=== PATIENT | female | born 1990 | race Caucasian/White ===

== ENCOUNTER 2023-12-02 15:58 | Emergency (ER) | payer OTHER, SELFPAY ==
[2023-12-02 16:05] VITALS: BP 124/79; PULSE 70; TEMP 36.8; O2SAT 99; BMI 28.8
--- NOTE | 2023-12-02 16:20 | CT_ITS ---
The [address] [address] Patient Name: CHAMP BEAR MRN: [id number] date: 1990 Sex: F Assigned Patient Location: ER Current Patient Location: ER Accession/Order Number: [id number] Exam Date: 12/02/2023 17:45 Report Date: 12/02/2023 18:36 At the request of: BLOSSOM VELASQUEZ Procedure: CT abdomen pelvis w con EXAM: CT abdomen pelvis w con HISTORY: Upper abdominal pain, possible gallbladder issue COMPARISON: None. TECHNIQUE: Helical CT images from the lung bases through the symphysis pubis were obtained with contrast. Coronal and sagittal reformatted images were generated at a workstation for further assessment. FINDINGS: Lower chest: No consolidation. No pleural effusion or pneumothorax. Liver: No suspicious liver lesions. Portal veins appear patent. Gallbladder: No gallstones. No evidence of acute cholecystitis. Spleen: Normal size. Pancreas: No suspicious pancreatic lesions. The pancreatic duct is not dilated. Adrenal glands: No adrenal nodules. Kidneys: No hydronephrosis or obstructing renal stones. There is a punctate nonobstructing stone at the inferior left kidney. Bladder / Pelvic organs: The uterus is present. The ovaries are visualized. There is mild free pelvic fluid, which may be physiologic.. Bowel: No bowel wall thickening. The appendix is not visualized. There is no evidence for appendicitis. No bowel obstruction. Lymph nodes: No retroperitoneal, mesenteric, or pelvic lymphadenopathy. Peritoneum / Retroperitoneum: No free fluid or air within the abdomen. Vessels: No infrarenal aortic aneurysm. Bones and soft tissues: No suspicious lesion in the bones. There is a low transverse section scar. Fixation changes at L5-S1. CT/CT abdomen pelvis w con IMPRESSION: 1. No acute finding in the abdomen or pelvis. The gallbladder appears normal. 2. There is mild free pelvic fluid, which may be physiologic. Electronically authenticated by: RALF KNUTSON Date: 12/02/2023 18:36
--- NOTE | 2023-12-02 16:21 | ED.GENADUL1 ---
HPI HPI - General Adult General Chief complaint: Nausea/Vomiting/Diarrhea Stated complaint: Nausea/Vomiting, Abdominal Pain Time Seen by Provider: 12/02/23 16:13 Source: patient Mode of arrival: walk-in Limitations: no limitations History of Present Illness HPI narrative: 33-year-old female presents to the emergency department for abdominal pain. Its across her upper abdomen and she has had it intermittently for about a week. She has been having diarrhea as well, nonbloody. She has been nauseous and had vomited some yellow liquid. She had a delivery in September of this year, 2-1/2 months ago. She has never had any issues with her gallbladder. The pain is moderate and intermittent. Related Data Home Medications ?Medication ?Instructions ?Recorded ?Confirmed aspirin 81 mg chewable tablet 81 mg PO DAILY 12/02/23 12/02/23 (Aspirin Childrens) clonazepam 1 mg tablet 1 mg PO Q8H PRN anxiety 12/02/23 12/02/23 dextroamphetamine-amphetamine 30 30 mg PO DAILY 12/02/23 12/02/23 mg tablet fluoxetine 10 mg capsule 20 mg PO DAILY 12/02/23 12/02/23 fluticasone propionate 50 2 spray intranasal Q12H PRN nasal 12/02/23 12/02/23 mcg/actuation nasal congestion spray,suspension spironolactone 25 mg tablet 50 mg PO DAILY 12/02/23 12/02/23 Allergies Allergy/AdvReac Type Severity Reaction Status Date / Time iodine Allergy Severe Anaphylaxis Verified 12/02/23 16:22 minocycline Allergy Severe Joint Pain Verified 12/02/23 16:22 Sulfa (Sulfonamide Allergy Severe Hives Verified 12/02/23 16:22 Antibiotics) shellfish Allergy Severe Anaphylaxis Uncoded 12/02/23 16:22 levoquin Allergy Intermediate Hives Uncoded 12/02/23 16:22 Opioid HPI Opioid Management Most Recent Opioid Data: Last Pain Scale 6 12/02/23 16:25 Last ED Pain Assessment 12/02/23 16:25 Review of Systems ROS Narrative A ten point review of systems is negative except as noted above. [facility] Medical History (Updated 12/02/23 @ 18:46 by Trevin Cantu MD) Lupus anticoagulant disorder ?D68.62 - Lupus anticoagulant syndrome (ICD-10) Sjogren syndrome ?M35.00 - Sjogren syndrome, unspecified (ICD-10) Raynaud disease ?I73.00 - Raynaud's syndrome without gangrene (ICD-10) Connective tissue disorder ?M35.9 - Systemic involvement of connective tissue, unspecified (ICD-10) Exam Narrative Exam Narrative: Nurses note and vital signs reviewed and patient is not hypoxic. General: The patient appears uncomfortable. Skin: Warm, dry, no pallor noted. There is no rash noted. Head: Normocephalic, atraumatic Eye: Normal conjunctiva, no drainage Ears, Nose, Mouth, and Throat: oral mucosa is moist. Nares patent. Cardiovascular: Regular Rate and Rhythm Respiratory: Patient is in no distress, no accessory muscle use, lungs are clear to auscultation, no wheezing, rales or rhonchi Back: non-tender GI: Soft and nondistended. Tenderness across her upper abdomen without mass Musculoskeletal: The patient has no evidence of calf tenderness, no pitting edema, symmetrical pulses noted bilaterally Neurological: A&O, normal speech Psychiatric: Cooperative Constitutional Vital Signs, click to edit/add: Last Vital Signs Temp 98.3 F 12/02/23 16:05 Pulse 70 12/02/23 16:05 Resp 16 12/02/23 16:05 BP 124/79 12/02/23 16:05 Pulse Ox 99 12/02/23 16:05 Course Vital Signs Vital signs: Vital Signs Temperature 98.3 F 12/02/23 16:05 Pulse Rate 70 12/02/23 16:05 Respiratory Rate 16 12/02/23 16:05 Blood Pressure 124/79 12/02/23 16:05 Pulse Oximetry 99 12/02/23 16:05 Temperature 98.3 F 12/02/23 16:05 Pulse Rate 70 12/02/23 16:05 Respiratory Rate 16 12/02/23 16:05 Blood Pressure 124/79 12/02/23 16:05 Pulse Oximetry 99 12/02/23 16:05 Medical Decision Making MDM Narrative Medical decision making narrative: Her workup is negative including labs and CT of the abdomen. No evidence of gallbladder disease. She is able to be discharged home. Treatment diagnosis and follow-up were discussed with the patient. She likely has gastroenteritis. Treatment diagnosis and follow-up were discussed thoroughly Differential Diagnosis Differential Diagnosis: Gastroenteritis, biliary colic Lab Data Lab results reviewed: Yes I reviewed the patient's lab results Labs: Lab Results 12/02/23 Range/Units 16:30 WBC 7.4 (4.0-11.0) 10^3/uL RBC 4.60 (4.20-5.40) 10^6/uL Hgb 13.2 (12.0-16.0) g/dL Hct 39.1 (36.0-48.0) % MCV 85.0 (81.0-99.0) fL MCH 28.7 (26.7-34.0) pg MCHC 33.8 (29.9-35.2) g/dL RDW 16.7 H (11.0-15.0) % Plt Count 314 (150-450) 10^3/uL MPV 9.9 (9.5-13.5) fL Neut % (Auto) 61.3 (43.0-75.0) % Lymph % (Auto) 19.2 L (20.5-60.0) % [place] % (Auto) 9.5 (1.7-12.0) % Eos % (Auto) 8.9 H (0.9-7.0) % Baso % (Auto) 0.8 (0.2-2.0) % Neut # (Auto) 4.5 (1.4-6.5) 10^3/uL Lymph # (Auto) 1.4 (1.2-3.8) 10^3/uL [place] # (Auto) 0.7 (0.3-0.8) 10^3/uL Eos # (Auto) 0.7 (0.0-0.7) 10^3/uL Baso # (Auto) 0.1 (0.0-0.1) 10^3/uL Abs Immat Gran (auto) 0.02 (0.00-0.03) 10^3/uL Imm/Tot Granulo (auto) 0.3 (0.0-0.5) % Sodium 139 (136-145) mmol/L Potassium 4.3 (3.5-5.1) mmol/L Chloride 103 (98-107) mmol/L Carbon Dioxide 24.5 (21.0-32.0) mmol/L Anion Gap 15.8 BUN 10.0 (7.0-18.0) mg/dL Creatinine 0.96 (0.55-1.02) mg/dL Est GFR ( Amer) >60 (>=60) Est GFR (Non-Af Amer) >60 (>=60) BUN/Creatinine Ratio 10.4 Glucose 115 H (74-106) mg/dL Calcium 9.0 (8.5-10.1) mg/dL Total Bilirubin 0.5 (0.2-1.0) mg/dL Direct Bilirubin 0.1 (0.0-0.2) mg/dL AST 28 (15-37) U/L ALT 39 (14-59) U/L Alkaline Phosphatase 110 (46-116) U/L Total Protein 7.1 (6.4-8.2) g/dL Albumin 3.9 (3.4-5.0) g/dL Globulin 3.2 g/dL Albumin/Globulin Ratio 1.2 Amylase 70 (25-115) U/L Lipase 36.0 (16.0-77.0) U/L Serum HCG, Qual Negative (NEGATIVE) Imaging Data CT scan - abdomen: Radiologist's impression: ITS Impressions Abdomen/Pelvis CT 12/02/23 16:20 IMPRESSION: 1. No acute finding in the abdomen or pelvis. The gallbladder appears normal. 2. There is mild free pelvic fluid, which may be physiologic. Electronically authenticated by: RALF KNUTSON Date: 12/02/2023 18:36 Discharge Plan Discharge Stand Alone Forms: Portal Instructions Chief Complaint: Nausea/Vomiting/Diarrhea Clinical Impression: Gastroenteritis Patient Disposition: Home, Self-Care Time of Disposition Decision: 18:46 Condition: Good Mode of Transportation: Private Vehicle Prescriptions / Home Meds: No Action clonazepam 1 mg tablet 1 mg PO Q8H PRN (Reason: anxiety) fluoxetine 10 mg capsule 20 mg PO DAILY dextroamphetamine-amphetamine 30 mg tablet 30 mg PO DAILY aspirin [Aspirin Childrens] 81 mg tablet,chewable 81 mg PO DAILY fluticasone propionate 50 mcg/actuation spray,suspension 2 spray INTRANASAL Q12H PRN (Reason: nasal congestion) spironolactone 25 mg tablet 50 mg PO DAILY Print Language: [place] Instructions: Gastroenteritis (ED) Referrals: Bryan TOMLIN [Primary Care Provider] - 1 week
[2023-12-02 17:03] LABS: Basophils Absolute Auto 0.1 10^3/uL (0.0-0.1); Basophils Percent Auto 0.8 % (0.2-2.0); Eosinophils Absolute Auto 0.7 10^3/uL (0.0-0.7); Eosinophils Percent Auto 8.9 % (0.9-7.0); Hematocrit 39.1 % (36.0-48.0); Hemoglobin 13.2 g/dL (12.0-16.0); Immature Granulocytes Abs Auto 0.02 10^3/uL (0.00-0.03); Immature Granulocytes Pct Auto 0.3 % (0.0-0.5); Lymphocytes Absolute Auto 1.4 10^3/uL (1.2-3.8); Lymphocytes Percent Auto 19.2 % (20.5-60.0); Mean Corpuscular HGB Conc 33.8 g/dL (29.9-35.2); Mean Corpuscular Hemoglobin 28.7 pg (26.7-34.0); Mean Platelet Volume 9.9 fL (9.5-13.5); Monocytes Absolute Auto 0.7 10^3/uL (0.3-0.8); Monocytes Percent Auto 9.5 % (1.7-12.0); Neutrophils Absolute Auto 4.5 10^3/uL (1.4-6.5); Neutrophils Percent Auto 61.3 % (43.0-75.0); Platelet Count 314 10^3/uL (150-450); Red Cell Distribution Width 16.7 % (11.0-15.0); White Blood Count 7.4 10^3/uL (4.0-11.0)
[2023-12-02 17:19] LABS: HCG Qualitative NEGATIVE (NEGATIVE)
[2023-12-02 17:20] LABS: Internal Control Within Normal Limits
[2023-12-02 17:23] LABS: Alanine Aminotransferase 39 U/L (14-59); Albumin Globulin Ratio 1.2; Albumin Level 3.9 g/dL (3.4-5.0); Alkaline Phosphatase 110 U/L (46-116); Amylase 70 U/L (25-115); Anion Gap 15.8; Aspartate Amino Transferase 28 U/L (15-37); BUN Creatinine Ratio 10.4; Bilirubin Direct 0.1 mg/dL (0.0-0.2); Bilirubin Total 0.5 mg/dL (0.2-1.0); Carbon Dioxide 24.5 mmol/L (21.0-32.0); Chloride 103 mmol/L (98-107); Estimated GFR (African America >60 (>=60); Estimated GFR (Non-African Ame >60 (>=60); Globulin 3.2 g/dL; Glucose 115 mg/dL (74-106); Potassium 4.3 mmol/L (3.5-5.1); Sodium 139 mmol/L (136-145); Total Protein 7.1 g/dL (6.4-8.2)
== END 2023-12-02 18:47 | disposition home or self-care (01) ==
PROVIDERS: Emergency Provider Emergency Medicine; PCP Family Medicine
DX: K52.9 Noninfective gastroenteritis and colitis, unspecified (principal)
CPT/HCPCS: 36415; 74177; 80048; 80076; 82150; 83690; 84703; 85025; 87045; 87046; 87427; 99285; Q9967